=== PATIENT | female | born 1960 | race American Indian/Alaskan Native ===

== ENCOUNTER 2017-05-12 23:15 | Emergency (ER) | payer MEDICARE ==
[2017-05-13 00:53] LABS: Alanine Aminotransferase 12 units/L (7-56); Albumin/Globulin Ratio 1.5 %; Alkaline Phosphatase 101 units/L (35-129); Anion Gap 20 mmol/L; BUN/Creatinine Ratio 13; Blood Urea Nitrogen 10 mg/dL (7-17); Calcium 8.9 mg/dL (8.4-10.2); Carbon Dioxide 24 mmol/L (22-30); Chloride 100.3 mmol/L (98-107); Glucose 98 mg/dL (65-100); Lipase 16 units/L (13-60); Potassium 3.8 mmol/L (3.6-5.0); Sodium 140 mmol/L (137-145); Total Protein 6.7 g/dL (6.3-8.2)
[2017-05-13 01:00] LABS: Bilirubin,Urine NEG (Negative); Blood,Urine MOD (Negative); Ketones,Urine NEG (Negative); Leukocyte Esterase,Urine NEG (Negative); Nitrite,Urine NEG (Negative); Protein,Urine <15 mg/dL mg/dL (Negative); Urobilinogen,Urine < 2.0 mg/dL (<2.0)
[2017-05-13 01:45] LABS: Basophils % (Auto) 1.2 % (0.0-1.8); Eosinophils % (Auto) 1.5 % (0.0-4.3); Hematocrit 40.3 % (30.3-42.9); Hemoglobin 13.1 gm/dl (10.1-14.3); Mean Corpuscular HGB Conc 33 % (30-34); Mean Corpuscular Hemoglobin 29 pg (28-32); Mean Corpuscular Volume 90 fl (79-97); Platelet Count 240 K/mm3 (140-440); Red Blood Count 4.47 M/mm3 (3.65-5.03); Red Cell Distribution Width 13.1 % (13.2-15.2); White Blood Count 9.8 K/mm3 (4.5-11.0)
[2017-05-13] MEDS ORDERED: TYLENOL PO ONE (03:42)
[2017-05-13] MEDS ORDERED: TYLENOL ONE (03:45)
[2017-05-13] MEDS ORDERED: NACL 0.9% 1000 ML 1,000 ML IV ONE (11:36)
[2017-05-13] MEDS ORDERED: TORADOL IV ONE (11:36)
[2017-05-13] MEDS ORDERED: DILAUDID IV ONE (11:36)
--- NOTE | 2017-05-13 11:37 | Emergency Department Report ---
ED General Adult HPI - General Chief complaint: Abdominal Pain Stated complaint: FLANK PAIN Time Seen by Provider: 05/13/17 11:08 Source: patient, RN notes reviewed, old records reviewed Mode of arrival: Ambulatory Limitations: No Limitations - History of Present Illness Initial comments: This is a 57-year-old female. The patient is previously known to this provider. Patient has a past medical history of hypertension and high cholesterol. Her primary care doctor is Dr. Alicea. Surgical history includes total abdominal hysterectomy. The patient presents to the ER with a complaint of abdominal pain. The abdominal pain is in the right lower quadrant, and radiates to the right upper quadrant. The pain decreases when she is sitting up, and increases when she is walking. There is no headache, neck pain, chest pain, Patient also reports that the pain is worsened when she takes a deep breath. There is no leg pain. There is no leg swelling. Patient denies dysuria, but does endorse urinary urgency. She reports having had an outpatient CT scan last week, not certain of the results, and does not think that she received IV contrast. -: Gradual Location: abdomen Radiation: abdomen Severity scale (0 -10): 5 Quality: stabbing, aching Consistency: intermittent Improves with: rest Worsens with: movement Associated Symptoms: denies: confusion, chest pain, cough, loss of appetite, malaise, nausea/vomiting - Related Data Home Medications Medication Instructions Recorded Confirmed Last Taken Metoprolol [Lopressor] 25 mg PO BID 12/20/15 03/10/16 Unknown Simvastatin [Zocor TAB] 10 mg PO QHS 12/20/15 03/10/16 Unknown Previous Rx's Medication Instructions Recorded Last Taken Type Pantoprazole [Protonix] 40 mg PO QDAY #30 tablet 12/20/15 Unknown Rx Famotidine [Pepcid] 20 mg PO BID #60 tablet 03/11/16 Unknown Rx Ondansetron [Zofran ODT TAB] 8 mg PO Q8HR #20 tab.rapdis 03/11/16 Unknown Rx traMADol [Ultram] 50 mg PO Q6HR PRN #14 tablet 03/11/16 Unknown Rx Acetaminophen/Codeine [Tylenol 1 tab PO Q6H PRN #15 tab 05/13/17 Unknown Rx /Codeine # 3 tab] Ciprofloxacin HCl [Ciprofloxacin 500 mg PO Q12HR #10 tab 05/13/17 Unknown Rx TAB] Metoclopramide [Reglan] 10 mg PO QID PRN #30 tablet 05/13/17 Unknown Rx metroNIDAZOLE [Flagyl] 500 mg PO Q8HR #15 tablet 05/13/17 Unknown Rx Allergies Allergy/AdvReac Type Severity Reaction Status Date / Time No Known Allergies Allergy Verified 12/19/15 21:57 ED Review of Systems ROS: Stated complaint: FLANK PAIN Other details as noted in HPI Constitutional: denies: fever Eyes: denies: eye discharge ENT: denies: epistaxis Respiratory: see HPI. denies: cough, shortness of breath Cardiovascular: denies: chest pain Gastrointestinal: abdominal pain Genitourinary: as per HPI. denies: dysuria Musculoskeletal: as per HPI Skin: denies: lesions Neurological: denies: weakness ED Past Medical Hx - Past Medical History Previous Medical History?: Yes Hx Hypertension: Yes Hx GERD: Yes Hx Psychiatric Treatment: Yes (DEPRESSION/ANXIETY) Additional medical history: Urine Urgency - Surgical History Past Surgical History?: Yes Additional Surgical History: HYSTERECTOMY - Social History Smoking Status: Never Smoker Substance Use Type: None - Medications Home Medications: Home Medications Medication Instructions Recorded Confirmed Last Taken Type Metoprolol [Lopressor] 25 mg PO BID 12/20/15 03/10/16 Unknown History Pantoprazole [Protonix] 40 mg PO QDAY #30 tablet 12/20/15 03/10/16 Unknown Rx Simvastatin [Zocor TAB] 10 mg PO QHS 12/20/15 03/10/16 Unknown History Famotidine [Pepcid] 20 mg PO BID #60 tablet 03/11/16 Unknown Rx Ondansetron [Zofran ODT TAB] 8 mg PO Q8HR #20 tab.rapdis 03/11/16 Unknown Rx traMADol [Ultram] 50 mg PO Q6HR PRN #14 tablet 03/11/16 Unknown Rx Acetaminophen/Codeine [Tylenol 1 tab PO Q6H PRN #15 tab 05/13/17 Unknown Rx /Codeine # 3 tab] Ciprofloxacin HCl [Ciprofloxacin 500 mg PO Q12HR #10 tab 05/13/17 Unknown Rx TAB] Metoclopramide [Reglan] 10 mg PO QID PRN #30 tablet 05/13/17 Unknown Rx metroNIDAZOLE [Flagyl] 500 mg PO Q8HR #15 tablet 05/13/17 Unknown Rx ED Physical Exam - General Limitations: No Limitations General appearance: alert, in no apparent distress - Head Head exam: Present: atraumatic, normocephalic - Eye Eye exam: Present: normal appearance, EOMI. Absent: nystagmus - ENT ENT exam: Present: normal exam, normal orophraynx, mucous membranes moist, normal external ear exam - Neck Neck exam: Present: normal inspection, full ROM. Absent: tenderness, meningismus - Respiratory Respiratory exam: Present: normal lung sounds bilaterally. Absent: respiratory distress, wheezes, rales, rhonchi, stridor, chest wall tenderness - Cardiovascular Cardiovascular Exam: Present: regular rate, normal rhythm, normal heart sounds. Absent: systolic murmur, diastolic murmur, rubs, gallop - GI/Abdominal GI/Abdominal exam: Present: soft, tenderness, normal bowel sounds, other (there is right lower quadrant, right flank and right upper quadrant tenderness). Absent: distended, guarding, rebound, rigid - Extremities Exam Extremities exam: Present: normal inspection, full ROM, normal capillary refill. Absent: pedal edema, joint swelling, calf tenderness - Back Exam Back exam: Present: normal inspection, full ROM. Absent: tenderness, CVA tenderness (R), CVA tenderness (L), muscle spasm, paraspinal tenderness, vertebral tenderness - Neurological Exam Neurological exam: Present: alert, oriented X3, normal gait, other (Extraocular movements intact. Tongue midline. No facial droop. Facial sensation intact to light touch in the V1, V2, V3 distribution bilaterally. 5 and 5 strength in 4 extremities.. Sensation is intact to light touch in 4 extremities.). Absent : motor sensory deficit - Psychiatric Psychiatric exam: Present: normal affect, normal mood - Skin Skin exam: Present: warm, dry, intact, normal color. Absent: rash ED Course Vital Signs 05/12/17 05/13/17 05/13/17 23:18 04:30 15:04 Temperature 98.1 F 98.2 F Pulse Rate 77 65 Respiratory 18 18 20 Rate Blood Pressure 188/103 151/102 Blood Pressure [Right] O2 Sat by Pulse 99 100 Oximetry 05/13/17 05/13/17 15:05 15:47 Temperature Pulse Rate 68 Respiratory 20 18 Rate Blood Pressure Blood Pressure 150/96 [Right] O2 Sat by Pulse 100 Oximetry - Reevaluation(s) Reevaluation #1: 05/13/17 15:53 Differential diagnosis, including but not limited to: Pneumonia, pulmonary embolus, renal colic, appendicitis, cholecystitis Assessment and plan: 57-year-old female with right lower quadrant pain that radiates to the right upper quadrant. She is afebrile with reassuring vital signs with the exception of hypertension. No pulmonary embolus or DVT risk factors, low risk by well's criteria, d-dimer negative. Laboratory studies unremarkable, urinalysis unremarkable. Patient is pending CT scan of the abdomen and pelvis with IV contrast. Of note, the patient had a prolonged stay in the emergency department because she was a technically difficult IV stick, and ultimately required ultrasound-guided placement of an 18-gauge Angiocath in the right internal jugular system. She was treated aggressively for her pain, and as per nursing staff her pain is much improved. Reevaluation #2: 05/13/17 18:40 Abdomen is soft on repeat examination. CT scan demonstrates right-sided diverticulitis. The appendix is not discretely identified, but given 2 weeks of symptoms, have a very low suspicion for appendicitis. Patient will be started empirically on oral antibiotics, she will be given pain medication, nausea medication, and she will be instructed to follow-up with outpatient gastroenterology. Return precautions are reviewed. Patient will also be given a copy of her CAT scan report, as well as her laboratory studies. Reevaluation #3: 05/13/17 18:51 Patient reports a negative colonoscopy 2 years ago. She is eating food presently. She reports her symptoms are much improved. - Procedure Description Procedures done: Peripheral IV access could not be obtained by myself or nursing staff. The right neck was prepped and draped in the typical sterile fashion, patient was anesthetized with 10 mL of 1% lidocaine. With ultrasound guidance, a right-sided internal jugular 18-gauge Angiocath (3 inches), was inserted with 1 attempt and no difficulty. Full sterile precautions were observed. The patient tolerated the procedure well. After the procedure, there was no swelling or hematoma, and the IV line was easy to flush. ED Medical Decision Making - Lab Data Result diagrams: 05/13/17 00:10 05/13/17 00:10 Vital Signs 05/12/17 05/13/17 05/13/17 23:18 04:30 15:04 Temperature 98.1 F 98.2 F Pulse Rate 77 65 Respiratory 18 18 20 Rate Blood Pressure 188/103 151/102 Blood Pressure [Right] O2 Sat by Pulse 99 100 Oximetry 05/13/17 05/13/17 15:05 15:47 Temperature Pulse Rate 68 Respiratory 20 18 Rate Blood Pressure Blood Pressure 150/96 [Right] O2 Sat by Pulse 100 Oximetry Lab Results 05/13/17 05/13/17 05/13/17 Range/Units 00:10 00:10 00:20 WBC 9.8 (4.5-11.0) K/mm3 RBC 4.47 (3.65-5.03) M/mm3 Hgb 13.1 (10.1-14.3) gm/dl Hct 40.3 (30.3-42.9) % MCV 90 (79-97) fl MCH 29 (28-32) pg MCHC 33 (30-34) % RDW 13.1 L (13.2-15.2) % Plt Count 240 (140-440) K/mm3 Lymph % (Auto) 19.7 (13.4-35.0) % [place] % (Auto) 7.0 (0.0-7.3) % Eos % (Auto) 1.5 (0.0-4.3) % Baso % (Auto) 1.2 (0.0-1.8) % Lymph # 1.9 (1.2-5.4) K/mm3 [place] # 0.7 (0.0-0.8) K/mm3 Eos # 0.1 (0.0-0.4) K/mm3 Baso # 0.1 (0.0-0.1) K/mm3 Seg Neutrophils % 70.6 H (40.0-70.0) % Seg Neutrophils # 6.9 (1.8-7.7) K/mm3 PT (12.2-14.9) Sec. INR (0.87-1.13) APTT (24.2-36.6) Sec. D-Dimer (0-234) ng/mlDDU Sodium 140 (137-145) mmol/L Potassium 3.8 (3.6-5.0) mmol/L Chloride 100.3 (98-107) mmol/L Carbon Dioxide 24 (22-30) mmol/L Anion Gap 20 mmol/L BUN 10 (7-17) mg/dL Creatinine 0.8 (0.7-1.2) mg/dL Estimated GFR > 60 ml/min BUN/Creatinine Ratio 13 % Glucose 98 (65-100) mg/dL Calcium 8.9 (8.4-10.2) mg/dL Total Bilirubin 0.30 (0.1-1.2) mg/dL AST 16 (5-40) units/L ALT 12 (7-56) units/L Alkaline Phosphatase 101 (35-129) units/L Total Protein 6.7 (6.3-8.2) g/dL Albumin 4.0 (3.9-5) g/dL Albumin/Globulin Ratio 1.5 % Lipase 16 (13-60) units/L Urine Color Yellow (Yellow) Urine Turbidity Clear (Clear) Urine pH 6.0 (5.0-7.0) Ur Specific [place] 1.011 (1.003-1.030) Urine Protein <15 mg/dl (Negative) mg/dL Urine Glucose (UA) Neg (Negative) mg/dL Urine Ketones Neg (Negative) mg/dL Urine Blood Mod (Negative) Urine Nitrite Neg (Negative) Urine Bilirubin Neg (Negative) Urine Urobilinogen < 2.0 (<2.0) mg/dL Ur Leukocyte Esterase Neg (Negative) Urine WBC (Auto) 1.0 (0.0-6.0) /HPF Urine RBC (Auto) 2.0 (0.0-6.0) /HPF U Epithel Cells (Auto) 9.0 (0-13.0) /HPF 05/13/17 Range/Units Unknown WBC (4.5-11.0) K/mm3 RBC (3.65-5.03) M/mm3 Hgb (10.1-14.3) gm/dl Hct (30.3-42.9) % MCV (79-97) fl MCH (28-32) pg MCHC (30-34) % RDW (13.2-15.2) % Plt Count (140-440) K/mm3 Lymph % (Auto) (13.4-35.0) % [place] % (Auto) (0.0-7.3) % Eos % (Auto) (0.0-4.3) % Baso % (Auto) (0.0-1.8) % Lymph # (1.2-5.4) K/mm3 [place] # (0.0-0.8) K/mm3 Eos # (0.0-0.4) K/mm3 Baso # (0.0-0.1) K/mm3 Seg Neutrophils % (40.0-70.0) % Seg Neutrophils # (1.8-7.7) K/mm3 PT 13.8 (12.2-14.9) Sec. INR 1.01 (0.87-1.13) APTT 30.0 (24.2-36.6) Sec. D-Dimer 174.13 (0-234) ng/mlDDU Sodium (137-145) mmol/L Potassium (3.6-5.0) mmol/L Chloride (98-107) mmol/L Carbon Dioxide (22-30) mmol/L Anion Gap mmol/L BUN (7-17) mg/dL Creatinine (0.7-1.2) mg/dL Estimated GFR ml/min BUN/Creatinine Ratio % Glucose (65-100) mg/dL Calcium (8.4-10.2) mg/dL Total Bilirubin (0.1-1.2) mg/dL AST (5-40) units/L ALT (7-56) units/L Alkaline Phosphatase (35-129) units/L Total Protein (6.3-8.2) g/dL Albumin (3.9-5) g/dL Albumin/Globulin Ratio % Lipase (13-60) units/L Urine Color (Yellow) Urine Turbidity (Clear) Urine pH (5.0-7.0) Ur Specific [place] (1.003-1.030) Urine Protein (Negative) mg/dL Urine Glucose (UA) (Negative) mg/dL Urine Ketones (Negative) mg/dL Urine Blood (Negative) Urine Nitrite (Negative) Urine Bilirubin (Negative) Urine Urobilinogen (<2.0) mg/dL Ur Leukocyte Esterase (Negative) Urine WBC (Auto) (0.0-6.0) /HPF Urine RBC (Auto) (0.0-6.0) /HPF U Epithel Cells (Auto) (0-13.0) /HPF - Radiology Data Radiology results: pending, report reviewed, image reviewed X-ray the chest is negative for acute disease CT scan of the abdomen and pelvis: Critical care attestation.: If time is entered above; I have spent that time in minutes in the direct care of this critically ill patient, excluding procedure time. ED Disposition Clinical Impression: Abdominal pain Disposition: DC-01 TO HOME OR SELFCARE Is pt being admited?: No Does the pt Need Aspirin: No Condition: Stable Instructions: Abdominal Pain (ED) Additional Instructions: Follow-up with your primary care doctor within the next 7-10 days. Blood pressure was elevated, and this needs to be followed up. Long-term complications of hypertension and elevated blood pressure includes stroke, heart attack, disability, , paralysis, loss of quality of life. CT scan suggested diverticulitis/inflammation of the ascending/right-sided colon. Follow up with a hearing officer within the next month. Dr. Cooley is a local gastroenterology specialist. Take the antibiotics, pain medication, nausea medication as directed and needed. While taking the antibiotics, does not consume alcohol. Avoid alcohol consumption for the next 2 weeks. Return to the ER right away with new pain, worsened pain, migration of pain, fevers, chills, lethargy, irritability, projectile vomiting, change in mental status, inability to tolerate liquid feeds. Dr. Vito Washburn is a local primary care doctor. It is very important to follow-up with gastroenterology as directed. Not following up with gastroenterology as directed may result in an undiagnosed cancer, tumor, malignancy. Therefore, makes her to follow up as recommended. Prescriptions: Acetaminophen/Codeine [Tylenol /Codeine # 3 tab] 1 tab PO Q6H PRN #15 tab PRN Reason: Pain Ciprofloxacin HCl [Ciprofloxacin TAB] 500 mg PO Q12HR #10 tab Metoclopramide [Reglan] 10 mg PO QID PRN #30 tablet PRN Reason: Nausea metroNIDAZOLE [Flagyl] 500 mg PO Q8HR #15 tablet Referrals: PRIMARY CARE, [Primary Care Provider] - 3-5 Days SHIRA LEON MD [Staff Physician] - 3-5 Days VITO WASHBURN MD [Staff Physician] - 3-5 Days
--- NOTE | 2017-05-13 12:43 | XRay Report ---
ROUTINE CHEST, TWO VIEWS: HISTORY: Cough, pleuritic chest pain. The trachea, heart, mediastinal contour, lung carter and bony thorax are unremarkable. IMPRESSION: Unremarkable chest x-ray.
[2017-05-13] MEDS ORDERED: XYLOCAINE 2%/EPI 1:100,000 INFILTRATI ONE (13:59)
[2017-05-13] MEDS ORDERED: XYLOCAINE 1% 20 mL ONE (14:22)
[2017-05-13 15:28] LABS: INR 1.01 (0.87-1.13)
[2017-05-13 15:48] VITALS: BP 150/96
[2017-05-13] MEDS ORDERED: NACL ONE (16:38)
--- NOTE | 2017-05-13 18:38 | Cat Scan Report ---
FINAL REPORT PROCEDURE: CT ABDOMEN PELVIS W CON TECHNIQUE: Computerized axial tomography of the abdomen and pelvis was performed after the IV injection of iodinated nonionic contrast. HISTORY: Abdominal pain COMPARISON: 03/11/2016 FINDINGS: Visualized lower thorax: There is mild patchy atelectasis at the left lung base. Liver: Normal size and attenuation. Spleen: Normal size and attenuation. Gallbladder and biliary system: Normal. Pancreas: Normal. Adrenals: Normal. Kidneys: Normal. GI tract: There is diffuse colonic diverticulosis. There are mild inflammatory changes along the right lateral colonic wall, which may be related to mild diverticulitis. No extraluminal air or abscess is seen. The appendix is not visualized. There is no bowel obstruction. Lymph nodes and mesentery: There are bilateral numerous clips in the pelvis, possibly related to prior lymph node dissection. Vasculature: Normal. Bladder: Normal. Reproductive organs: Uterus is not visualized. Peritoneum: No free fluid. Musculoskeletal structures: There are degenerative disc changes at L3-4, with disc herniation and vacuum phenomenon. Other: None. IMPRESSION: Findings consistent with mild right colonic inflammation, likely related to diverticulitis. Follow-up imaging after treatment could be obtained to exclude any underlying colonic lesions.
[2017-05-13] MEDS ORDERED: FLAGYL PO ONE (18:41)
[2017-05-13] MEDS ORDERED: LEVAQUIN PO ONE (18:41)
== END 2017-05-13 19:08 | disposition home or self-care (01) ==
LOC: ED 23:15
DX: R10.32 Left lower quadrant pain (principal); I10 Essential (primary) hypertension; K21.9 Gastro-esophageal reflux disease without esophagitis
CPT/HCPCS: 36415; 36569; 71020; 74177; 80053; 81001; 83690; 85025; 85379; 85610; 85730; 96361; 96374; 96375; 99284; J1170; J1885; J7030; Q9967

== ENCOUNTER 2017-09-14 10:08 | Outpatient (CLI) | payer MEDICARE ==
--- NOTE | 2017-09-15 10:05 | Mammography Report ---
BILATERAL DIGITAL SCREENING MAMMOGRAM with CAD: 09/14/17 10:08:00 CLINICAL: Routine screening. COMPARISON:09/09/16 FINDINGS: The breasts are almost entirely fatty. No mass, architectural distortion or suspicious calcifications. IMPRESSION: No mammographic evidence of malignancy. BI-RADS CATEGORY: 1 - - Negative RECOMMENDATION: Routine mammographic screening in one year. COMMENT: Patient follow-up letters are generated by our [employer] application.
== END 2017-09-14 10:09 | disposition home or self-care (01) ==
LOC: MAMMO 10:08
PROVIDERS: ATTEND Internal Medicine
DX: Z12.31 Encounter for screening mammogram for malignant neoplasm of breast (principal)
CPT/HCPCS: 77067

== ENCOUNTER 2018-09-13 00:23 | Emergency (ER) | payer MEDICARE ==
[2018-09-13] MEDS ORDERED: NACL 0.9% 1000 ML 1,000 ML IV ONE (00:45)
[2018-09-13 01:14] LABS: Basophils # (Auto) 0.1 K/mm3 (0.0-0.1); Basophils % (Auto) 1.2 % (0.0-1.8); Eosinophils # (Auto) 0.1 K/mm3 (0.0-0.4); Eosinophils % (Auto) 1.4 % (0.0-4.3); Hemoglobin 12.9 gm/dl (10.1-14.3); Lymphocytes # (Auto) 2.2 K/mm3 (1.2-5.4); Lymphocytes % (Auto) 42.7 % (13.4-35.0); Mean Corpuscular HGB Conc 33 % (30-34); Mean Corpuscular Volume 91 fl (79-97); Monocytes # (Auto) 0.7 K/mm3 (0.0-0.8); Monocytes % (Auto) 13.1 % (0.0-7.3); Platelet Count 220 K/mm3 (140-440)
[2018-09-13] MEDS ORDERED: ZOFRAN IV ONE (01:19)
[2018-09-13] MEDS ORDERED: ATIVAN PO ONE (01:20)
[2018-09-13 01:28] LABS: Alanine Aminotransferase 24 units/L (7-56); Albumin 4.5 g/dL (3.9-5); BUN/Creatinine Ratio 10; Blood Urea Nitrogen 8 mg/dL (7-17); Calcium 8.7 mg/dL (8.4-10.2); Hemolysis Index 34
[2018-09-13 01:47] LABS: Bacteria,Urine 1+ /HPF (Negative); Bilirubin,Urine NEG (Negative); Blood,Urine MOD (Negative); Color,Urine Yellow (Yellow); Protein,Urine <15 mg/dL mg/dL (Negative); Urobilinogen,Urine < 2.0 mg/dL (<2.0)
--- NOTE | 2018-09-13 03:56 | Cat Scan Report ---
PROCEDURE: CT ABDOMEN PELVIS W CON TECHNIQUE: Computerized axial tomography of the abdomen and pelvis was performed after the IV inject ion of iodinated nonionic contrast. CT DOSE LENGTH PRODUCT: mGycm HISTORY: severe abdominal pain COMPARISONS: None . FINDINGS: Visualized lower thorax: No significant abnormality. Liver: Normal size and attenuation. Spleen: Normal size and attenuation. Gallbladder and biliary system: Normal. Pancreas: Normal. Adrenals: Normal. Kidneys: Normal. GI tract: There are diverticula of the colon. There is no diverticulitis or colitis, obstruction or mass. Extension and appendectomy. . Lymph nodes and mesentery: Normal. Vasculature: Normal.. Bladder: Normal. Reproductive organs: There has been a hysterectomy.. Peritoneum: There is no ascites or free air, abscess or adenopathy.. Musculoskeletal structures: No significant abnormality. IMPRESSION: There are diverticula of the colon. There is no diverticulitis or colitis, obstruction or mass. Extension and appendectomy. There has been a hysterectomy. There is no ascites or free air, abscess or adenopathy. This document is electronically signed by Sha Chairez MD., September 13 2018 03:54:28 AM ET
[2018-09-13 04:09] VITALS: BP 126/80
--- NOTE | 2018-09-13 05:00 | Emergency Department Report ---
HPI - General Chief Complaint: Nausea/Vomiting/Diarrhea Time Seen by Provider: 09/13/18 00:55 - HPI HPI: This is a 58-year-old female who presents to the ED with N/V, bilateral upper quadrant abdominal cramping rated 8/10 and pressure headache "on top" 6/10 since yesterday morning. Patient states she has been drinking liquor on and off since the age of 16 and EMS reports patient went on a binge for the past few days. ED Past Medical Hx - Past Medical History Previous Medical History?: Yes Hx Hypertension: Yes Hx Diabetes: No Hx GERD: Yes Hx Arthritis: No Hx Seizures: No Hx Psychiatric Treatment: Yes (DEPRESSION/ANXIETY) Hx HIV: No Additional medical history: Urine Urgency - Surgical History Past Surgical History?: Yes Additional Surgical History: HYSTERECTOMY - Social History Smoking Status: Never Smoker Substance Use Type: Alcohol - Medications Home Medications: Home Medications Medication Instructions Recorded Confirmed Last Taken Type Metoprolol [Lopressor TAB] 25 mg PO BID 12/20/15 12/30/17 Unknown History Simvastatin [Zocor TAB] 10 mg PO QHS 12/20/15 12/30/17 Unknown History Pantoprazole [Protonix TAB] 40 mg PO QDAY #30 tablet 09/13/18 Unknown Rx ED Review of Systems ROS: Stated complaint: N/V ABD PAIN Other details as noted in HPI Comment: All other systems reviewed and negative Constitutional: denies: see HPI ENT: denies: throat pain Cardiovascular: denies: chest pain, palpitations Gastrointestinal: abdominal pain, nausea, vomiting Physical Exam - Physical Exam Vital Signs: Vital Signs 09/13/18 09/13/18 09/13/18 00:37 00:46 00:48 Temperature 98.1 F Pulse Rate 127 H 116 H Respiratory 18 26 H 18 Rate Blood Pressure 125/89 125/89 O2 Sat by Pulse 100 99 100 Oximetry 09/13/18 09/13/18 09/13/18 01:00 01:16 01:30 Temperature Pulse Rate 112 H 118 H 115 H Respiratory 15 20 14 Rate Blood Pressure 116/85 116/85 119/81 O2 Sat by Pulse 97 97 95 Oximetry 09/13/18 09/13/18 09/13/18 01:46 02:00 03:00 Temperature Pulse Rate 114 H 114 H 103 H Respiratory 21 21 16 Rate Blood Pressure 125/89 118/71 106/70 O2 Sat by Pulse 96 95 Oximetry 09/13/18 04:00 Temperature Pulse Rate 98 H Respiratory 15 Rate Blood Pressure 126/80 O2 Sat by Pulse 95 Oximetry Physical Exam: Physical Exam: - General Limitations: No Limitations General appearance: alert, in no apparent distress. - Head Head exam: Present: atraumatic, normocephalic - Eye Eye exam: Present: normal appearance - ENT ENT exam: Present: mucous membranes moist - Neck Neck exam: Present: normal inspection - Respiratory Respiratory exam: Present: normal lung sounds bilaterally. Absent: respiratory distress - Cardiovascular Cardiovascular Exam: Present: normal rhythm. Absent: systolic murmur, diastolic murmur, rubs, gallop - GI/Abdominal GI/Abdominal exam: Present: soft, normal bowel sounds - Extremities Exam Extremities exam: Present: normal inspection - Back Exam Back exam: Present: normal inspection - Neurological Exam Neurological exam: Present: alert, oriented X3 - Psychiatric Psychiatric exam: normal affect and mood - Skin Skin exam: Present: warm, dry, intact, normal color. Absent: rash ED Course Vital Signs 09/13/18 09/13/18 09/13/18 00:37 00:46 00:48 Temperature 98.1 F Pulse Rate 127 H 116 H Respiratory 18 26 H 18 Rate Blood Pressure 125/89 125/89 O2 Sat by Pulse 100 99 100 Oximetry 09/13/18 09/13/18 09/13/18 01:00 01:16 01:30 Temperature Pulse Rate 112 H 118 H 115 H Respiratory 15 20 14 Rate Blood Pressure 116/85 116/85 119/81 O2 Sat by Pulse 97 97 95 Oximetry 09/13/18 09/13/18 09/13/18 01:46 02:00 03:00 Temperature Pulse Rate 114 H 114 H 103 H Respiratory 21 21 16 Rate Blood Pressure 125/89 118/71 106/70 O2 Sat by Pulse 96 95 Oximetry 09/13/18 04:00 Temperature Pulse Rate 98 H Respiratory 15 Rate Blood Pressure 126/80 O2 Sat by Pulse 95 Oximetry ED Medical Decision Making - Lab Data Result diagrams: 09/13/18 00:55 09/13/18 00:55 Critical care attestation.: If time is entered above; I have spent that time in minutes in the direct care of this critically ill patient, excluding procedure time. ED Disposition Clinical Impression: Abdominal pain Qualifiers: Abdominal location: generalized Qualified Code(s): R10.84 - Generalized abdominal pain GERD (gastroesophageal reflux disease) Qualifiers: Esophagitis presence: with esophagitis Qualified Code(s): K21.0 - Gastro-e sophageal reflux disease with esophagitis Disposition: TO HOME OR SELFCARE Is pt being admited?: No Does the pt Need Aspirin: No Condition: Stable Instructions: Gastritis (ED) Prescriptions: Pantoprazole [Protonix TAB] 40 mg PO QDAY #30 tablet Referrals: PRIMARY CARE, [Primary Care Provider] - 3-5 Days
== END 2018-09-13 06:50 | disposition home or self-care (01) ==
LOC: ED 00:23
DX: R11.2 Nausea with vomiting, unspecified (principal); R19.7 Diarrhea, unspecified; I10 Essential (primary) hypertension; K21.9 Gastro-esophageal reflux disease without esophagitis; F32.9 Major depressive disorder, single episode, unspecified; F41.9 Anxiety disorder, unspecified; Z90.710 Acquired absence of both cervix and uterus; Z79.899 Other long term (current) drug therapy
CPT/HCPCS: 36415; 74177; 80053; 81001; 82150; 83690; 85025; 93005; 93010; 96361; 96374; 99284; G0480; J2405; J7030; Q9967; 80320

== ENCOUNTER 2018-10-11 09:39 | Outpatient (CLI) | payer MEDICARE ==
--- NOTE | 2018-10-11 10:22 | Mammography Report ---
BILATERAL MAMMOGRAM: FINDINGS: There are scattered fibroglandular densities (approximately 25%-50% glandular). No mass, distortion, suspicious calcification, or skin change is seen. There no interval changes when compared to exams dating back to 2017. CAD was utilized. IMPRESSION: Negative mammogram. There is no mammographic evidence of malignancy. RECOMMENDATION: Follow-up per ACS guidelines. BI-RADS CATEGORY: 1 = Negative ACR BI-RADS MAMMOGRAPHIC CODES: 0 = Needs additional imaging evaluation; 1 = Negative; 2 = Benign; 3 = Probably benign; 4 = Suspicious; 5 = Malignant; 6 = Known biopsy-proven malignancy COMMENT: 1. Dense breast tissue, i.e., adenosis, fibrocystic changes, etc., may obscure an underlying neoplasm. 2. Approximately 10% of cancers are not detected with mammography. 3. A negative mammography report should not delay biopsy if a clinically suspicious mass is present. COMMENT: Patient follow-up letters are generated in [employer].
== END 2018-10-11 09:40 | disposition home or self-care (01) ==
LOC: MAMMO 09:39
PROVIDERS: ATTEND Internal Medicine
DX: Z12.31 Encounter for screening mammogram for malignant neoplasm of breast (principal); I10 Essential (primary) hypertension; K21.9 Gastro-esophageal reflux disease without esophagitis; Z90.710 Acquired absence of both cervix and uterus; Z87.891 Personal history of nicotine dependence
CPT/HCPCS: 77067

== ENCOUNTER 2020-11-27 12:28 | Emergency (ER) | payer MEDICARE ==
[2020-11-27 13:57] VITALS: BP 119/61
--- NOTE | 2020-11-27 14:16 | Event Note ---
ED Screening Note Date of service: 11/27/20 Time: 14:14 ED Screening Note: 60 y o presents with lft foot pain and swelling s/p injury This initial assessment/diagnostic orders/clinical plan/treatment(s) is/are subject to change based on patients health status, clinical progression and re-assessment by fellow clinical providers in the ED. Further treatment and workup at subsequent clinical providers discretion. Patient/guardian urged not to elope from the ED as their condition may be serious if not clinically assessed and managed. Initial orders include: xr
--- NOTE | 2020-11-27 14:53 | XRay Report ---
HISTORY:foot pain/ swelling COMPARISON: None. TECHNIQUE: AP lateral and obliques views were obtained FINDINGS: Bones: Fractures of the second and third distal metatarsals are noted. Joint spaces: Maintained. Soft tissues: No significant abnormality. Additional findings: None. IMPRESSION: 1. Fracture second and third metatarsals Signer Name: Simba Andujar MD Signed: 11/27/2020 2:49 PM Workstation Name: [id number]
[2020-11-27] MEDS ORDERED: HYDROcodone/ACETAMINOPHEN 5-325 MG TAB PO ONE (16:51)
--- NOTE | 2020-11-27 18:58 | Emergency Department Report ---
ED Lower Extremity HPI - General Chief Complaint: Extremity Injury, Lower Stated Complaint: FOOT PAIN Time Seen by Provider: 11/27/20 16:53 Source: patient Mode of arrival: Ambulatory Limitations: No Limitations - History of Present Illness Initial Comments: This is a 60-year-old female presented to ED complaining of left foot swelling and pain status post stepping in a hole and twisting her foot. Patient states that this injury happened last week. Patient states that she was at home trying to heal the foot but has gotten swollen and more painful since then. Patient states pain with applied applied pressure. Patient denies any cuts or laceration to the foot. MD Complaint: foot injury -: week(s) (1) Injury: Foot: Left Type of Injury: blunt Place: street/outdoors Severity: moderate Severity scale (0 -10): 9 Improves With: nothing, immobilization Worsens With: weight bearing, movement Context: walking Associated Symptoms: swelling, unable to bear weight - Related Data Home Medications Medication Instructions Recorded Confirmed Last Taken Simvastatin (Nf) [Zocor TAB] 10 mg PO QHS 12/20/15 04/26/20 04/16/20 Budesonide/Formoterol Fumarate 1 puff PO BID PRN 04/26/20 04/26/20 04/12/20 [Symbicort 80-4.5 Mcg Inhaler] Losartan [Cozaar] 50 mg PO QDAY 04/26/20 04/26/20 04/16/20 Sertraline [Zoloft] 25 mg PO QDAY 04/26/20 04/26/20 04/16/20 atenoloL [Tenormin] 25 mg PO DAILY 04/26/20 04/26/20 04/16/20 Previous Rx's Medication Instructions Recorded Last Taken Type Pantoprazole [Protonix TAB] 40 mg PO QDAY #30 tablet 09/13/18 04/23/20 Rx Cyclobenzaprine [Flexeril] 10 mg PO QHS PRN #20 tablet 11/27/20 Unknown Rx HYDROcodone/APAP 5-325 [[place] 1 each PO Q6HR PRN #12 tablet 11/27/20 Unknown Rx 5/325] Ibuprofen [Motrin 800 MG tab] 800 mg PO Q8HR PRN #30 tablet 11/27/20 Unknown Rx Allergies Allergy/AdvReac Type Severity Reaction Status Date / Time No Known Allergies Allergy Verified 12/19/15 21:57 ED Review of Systems ROS: Stated complaint: FOOT PAIN Other details as noted in HPI Comment: All other systems reviewed and negative ED Past Medical Hx - Past Medical History Previous Medical History?: Yes Hx Hypertension: Yes Hx Diabetes: No Hx GERD: Yes Hx Arthritis: No Hx Seizures: No Hx Psychiatric Treatment: Yes (DEPRESSION/ANXIETY) Hx HIV: No Additional medical history: Urine Urgency - Surgical History Additional Surgical History: HYSTERECTOMY - Social History Smoking Status: Never Smoker Substance Use Type: Alcohol - Medications Home Medications: Home Medications Medication Instructions Recorded Confirmed Last Taken Type Simvastatin (Nf) [Zocor TAB] 10 mg PO QHS 12/20/15 04/26/20 04/16/20 History Pantoprazole [Protonix TAB] 40 mg PO QDAY #30 tablet 09/13/18 04/26/20 04/23/20 Rx Budesonide/Formoterol Fumarate 1 puff PO BID PRN 04/26/20 04/26/20 04/12/20 History [Symbicort 80-4.5 Mcg Inhaler] Losartan [Cozaar] 50 mg PO QDAY 04/26/20 04/26/20 04/16/20 History Sertraline [Zoloft] 25 mg PO QDAY 04/26/20 04/26/20 04/16/20 History atenoloL [Tenormin] 25 mg PO DAILY 04/26/20 04/26/20 04/16/20 History Cyclobenzaprine [Flexeril] 10 mg PO QHS PRN #20 tablet 11/27/20 Unknown Rx HYDROcodone/APAP 5-325 [[place] 1 each PO Q6HR PRN #12 tablet 11/27/20 Unknown Rx 5/325] Ibuprofen [Motrin 800 MG tab] 800 mg PO Q8HR PRN #30 tablet 11/27/20 Unknown Rx ED Physical Exam - General Limitations: No Limitations General appearance: alert, in no apparent distress - Head Head exam: Present: atraumatic, normocephalic - Eye Eye exam: Present: normal appearance - ENT ENT exam: Present: mucous membranes moist - Neck Neck exam: Present: normal inspection, full ROM - Respiratory Respiratory exam: Present: normal lung sounds bilaterally. Absent: respiratory distress - Cardiovascular Cardiovascular Exam: Present: regular rate, normal rhythm. Absent: systolic murmur, diastolic murmur, rubs, gallop - GI/Abdominal GI/Abdominal exam: Present: soft, normal bowel sounds - Extremities Exam Extremities exam: Present: normal inspection, tenderness (To palpation of the anterior aspect of the foot. Minimal swelling noted.), pedal edema, joint swelling. Absent: calf tenderness - Back Exam Back exam: Present: normal inspection, full ROM. Absent: tenderness, CVA tenderness (R), CVA tenderness (L) - Neurological Exam Neurological exam: Present: alert, oriented X3 - Psychiatric Psychiatric exam: Present: normal affect, normal mood - Skin Skin exam: Present: warm, dry, intact, normal color. Absent: rash ED Course Vital Signs 11/27/20 13:55 Temperature 97.9 F Pulse Rate 88 Respiratory 18 Rate Blood Pressure 119/61 [Right] O2 Sat by Pulse 98 Oximetry ED Lower Extremity MDM - Radiology Data Radiology results: report reviewed, image reviewed ISTORY:foot pain/ swelling COMPARISON: None. TECHNIQUE: AP lateral and obliques views were obtained FINDINGS: Bones: Fractures of the second and third distal metatarsals are noted. Joint spaces: Maintained. Soft tissues: No significant abnormality. Additional findings: None. IMPRESSION: 1. Fracture second and third metatarsals Signer Name: Simba Andujar MD Signed: 11/27/2020 2:49 PM Workstation Name: [id number] Transcribed By: NATALIE Dictated By: Simba Andujar MD Electronically Authenticated By: Simba Andujar MD Signed Date/Time: 11/27/20 1449 - Medical Decision Making 60-year-old male presents with fracture of the second and third metatarsal of the left foot ED course: Pt received 60 mg of Carlisle tab in the emergency department Foot x-ray ordered. Foot x-ray shows: Fracture, see report above Discussed findings with patient. Discussed application of posterior splint to be placed. Post-splint evaluation: Capillary refill 2 seconds, patient able to wiggle fingers, neurovascularly intact no loss of sensation. Discussed the patient and orthopedic follow-up in 2-3 days. Referrals given. From follow-up from care physician. Vital signs are normal patient is in no acute or respiratory distress. Patient states understanding all discussed complaint of follow-up. Critical care attestation.: If time is entered above; I have spent that time in minutes in the direct care of this critically ill patient, excluding procedure time. ED Disposition Clinical Impression: Metatarsal fracture Disposition: TO HOME OR SELFCARE Is pt being admited?: No Does the pt Need Aspirin: No Condition: Stable Instructions: Cast or Splint Care, Adult, [id number], Metatarsal Fracture Additional Instructions: Make sure to follow up with the primary care physician as discussed. Take all your medications as you've been prescribed. If you have any worsening symptoms or develop new symptoms please return to ED immediately. Referrals: PRIMARY CAREMD [Primary Care Provider] - 3-5 Days HAIDER BARAJAS MD [Staff Physician] - 3-5 Days Forms: Work/School Release Form Time of Disposition: 19:00
== END 2020-11-27 19:50 | disposition home or self-care (01) ==
LOC: ED 12:28
DX: S92.332A Displaced fracture of third metatarsal bone, left foot, initial encounter for closed fracture (principal); I10 Essential (primary) hypertension; K21.9 Gastro-esophageal reflux disease without esophagitis; F32.9 Major depressive disorder, single episode, unspecified; F41.9 Anxiety disorder, unspecified; Z90.710 Acquired absence of both cervix and uterus; Z79.899 Other long term (current) drug therapy; X50.1XXA Overexertion from prolonged static or awkward postures, initial encounter; Y93.89 Activity, other specified; Y92.89 Other specified places as the place of occurrence of the external cause; Y99.8 Other external cause status

== ENCOUNTER 2021-02-28 10:12 | Outpatient (CLI) | payer MEDICARE ==
--- NOTE | 2021-02-28 14:33 | Mammography Report ---
DIGITAL SCREENING MAMMOGRAM WITH CAD, 02/28/2021 CLINICAL INFORMATION / INDICATION: Routine screening mammography. SCRN MAMMO TECHNIQUE: Digital bilateral 2D mammography was obtained in the craniocaudal and mediolateral obliqu e projections. This examination was interpreted with the benefit of Computer-Aided Detection analysis . COMPARISON: 02/09/2020 FINDINGS: Breast Density: The breasts are almost entirely fatty. No dominant mass, suspicious calcifications, or architectural distortion in either breast. IMPRESSION: No mammographic evidence of malignancy. Follow up recommendation: Routine yearly BI-RADS Category 1: Negative. A "normal" or negative report should not discourage follow up or biopsy of a clinically significant f inding. A written summary of these findings will be mailed to the patient. The patient will be entered into a mammography reporting system which will generate a reminder letter for the patient's next appointmen t at the appropriate interval. The [employer] recommends yearly mammograms starting at age 40 and continuing as l carmen as a woman is in good health. Breast MRI is recommended for women with an approximate 20-25% or greater lifetime risk of breast cancer, including women with a strong family history of breast or ova bisi cancer or who have been treated for Hodgkin's disease. Signer Name: Douglas Stevenson MD Signed: 02/28/2021 2:29 PM Workstation Name: [email or web address]
== END 2021-02-28 10:13 | disposition home or self-care (01) ==
LOC: MAMMO 10:12
PROVIDERS: ATTEND Internal Medicine
DX: Z12.31 Encounter for screening mammogram for malignant neoplasm of breast (principal)
CPT/HCPCS: 77067

== ENCOUNTER 2021-07-03 15:33 | Emergency (ER) | payer MEDICARE ==
--- NOTE | 2021-07-03 16:11 | Emergency Department Report ---
<LAURA GORMAN - Last Filed: 07/03/21 19:21> - General Chief Complaint: Upper Respiratory Infection Stated Complaint: FEELING SICK Time Seen by Provider: 07/03/21 15:46 Source: patient Mode of arrival: Ambulatory Limitations: No Limitations - History of Present Illness Initial Comments: This is a pleasant 61-year-old female presents the emergency department chief complaint of 2 days of body aches, cough, congestion, chills, headache. She reports her granddaughter who has she has been in direct contact with recently tested positive for COVID-19. Patient is fully vaccinated for COVID-19. She has past medical history of hypertension, hyperlipidemia, GERD, DVT in her left leg and current medications include telmisartan, atenolol, atorvastatin, sertraline, Nexium and Xarelto which she has been out of for the last few months. She denies any allergies to medications that she is aware of. She denies any chest pain or shortness of breath. - Related Data Home Medications Medication Instructions Recorded Confirmed Last Taken Simvastatin (Nf) [Zocor TAB] 10 mg PO QHS 12/20/15 04/26/20 04/16/20 Budesonide/Formoterol Fumarate 1 puff PO BID PRN 04/26/20 04/26/20 04/12/20 [Symbicort 80-4.5 Mcg Inhaler] Losartan [Cozaar] 50 mg PO QDAY 04/26/20 04/26/20 04/16/20 Sertraline [Zoloft] 25 mg PO QDAY 04/26/20 04/26/20 04/16/20 atenoloL [Tenormin] 25 mg PO DAILY 04/26/20 04/26/20 04/16/20 Previous Rx's Medication Instructions Recorded Last Taken Type Pantoprazole [Protonix TAB] 40 mg PO QDAY #30 tablet 09/13/18 04/23/20 Rx Cyclobenzaprine [Flexeril] 10 mg PO QHS PRN #20 tablet 11/27/20 Unknown Rx HYDROcodone/APAP 5-325 [[place] 1 each PO Q6HR PRN #12 tablet 11/27/20 Unknown Rx 5/325] Ibuprofen [Motrin 800 MG tab] 800 mg PO Q8HR PRN #30 tablet 11/27/20 Unknown Rx Allergies Allergy/AdvReac Type Severity Reaction Status Date / Time No Known Allergies Allergy Verified 12/19/15 21:57 ED Review of Systems Comment: All other systems reviewed and negative Constitutional: chills, fever, malaise Eyes: denies: eye pain, eye discharge, vision change ENT: congestion. denies: ear pain, throat pain Respiratory: denies: cough, shortness of breath, wheezing Cardiovascular: denies: chest pain, palpitations Endocrine: no symptoms reported Gastrointestinal: denies: abdominal pain, nausea, diarrhea Genitourinary: denies: urgency, dysuria, discharge Musculoskeletal: myalgia. denies: back pain, joint swelling, arthralgia Skin: denies: rash, lesions Neurological: headache. denies: weakness, paresthesias Psychiatric: denies: anxiety, depression Hematological/Lymphatic: denies: easy bleeding, easy bruising ED Past Medical Hx - Past Medical History Hx Hypertension: Yes Hx Diabetes: No Hx GERD: Yes Hx Arthritis: No Hx Seizures: No Hx Psychiatric Treatment: Yes (DEPRESSION/ANXIETY) Hx HIV: No Additional medical history: Urine Urgency - Surgical History Additional Surgical History: HYSTERECTOMY - Social History Smoking Status: Never Smoker Substance Use Type: Alcohol - Medications Home Medications: Home Medications Medication Instructions Recorded Confirmed Last Taken Type Simvastatin (Nf) [Zocor TAB] 10 mg PO QHS 12/20/15 04/26/20 04/16/20 History Pantoprazole [Protonix TAB] 40 mg PO QDAY #30 tablet 09/13/18 04/26/20 04/23/20 Rx Budesonide/Formoterol Fumarate 1 puff PO BID PRN 04/26/20 04/26/20 04/12/20 History [Symbicort 80-4.5 Mcg Inhaler] Losartan [Cozaar] 50 mg PO QDAY 04/26/20 04/26/20 04/16/20 History Sertraline [Zoloft] 25 mg PO QDAY 04/26/20 04/26/20 04/16/20 History atenoloL [Tenormin] 25 mg PO DAILY 04/26/20 04/26/20 04/16/20 History Cyclobenzaprine [Flexeril] 10 mg PO QHS PRN #20 tablet 11/27/20 Unknown Rx HYDROcodone/APAP 5-325 [[place] 1 each PO Q6HR PRN #12 tablet 11/27/20 Unknown Rx 5/325] Ibuprofen [Motrin 800 MG tab] 800 mg PO Q8HR PRN #30 tablet 11/27/20 Unknown Rx ED Physical Exam - General Limitations: No Limitations General appearance: alert, in no apparent distress - Head Head exam: Present: atraumatic, normocephalic - Eye Eye exam: Present: normal appearance, PERRL, EOMI Pupils: Present: normal accommodation - ENT ENT exam: Present: normal exam, normal orophraynx, mucous membranes moist - Neck Neck exam: Present: normal inspection, full ROM. Absent: tenderness, meningismus - Respiratory Respiratory exam: Present: normal lung sounds bilaterally. Absent: respiratory distress, wheezes, rales, rhonchi, stridor - Cardiovascular Cardiovascular Exam: Present: regular rate, normal rhythm, normal heart sounds. Absent: systolic murmur, diastolic murmur, rubs, gallop - GI/Abdominal GI/Abdominal exam: Present: soft, normal bowel sounds. Absent: distended, tenderness, guarding, rebound, rigid - Extremities Exam Extremities exam: Present: normal inspection, full ROM, tenderness, calf tenderness (There is tenderness and edema to the left lower leg when compared to the right.) - Back Exam Back exam: Present: normal inspection, full ROM. Absent: tenderness, CVA tenderness (R), CVA tenderness (L), paraspinal tenderness, vertebral tenderness - Neurological Exam Neurological exam: Present: alert, oriented X3, normal gait - Psychiatric Psychiatric exam: Present: normal affect, normal mood - Skin Skin exam: Present: warm, dry, intact, normal color. Absent: rash ED Course - Reevaluation(s) Reevaluation #1: 07/03/21 16:10 Patient's vitals are stable and she is in no acute distress. On my examination and noticed the patient's left leg was more swollen than the right. When questioned about this she did endorse she had a history of DVT and is supposed to be on Xarelto but is been out of it for the last few months. Due to her high risk of PE and respiratory symptoms currently I will order a CT pulmonary em bolism study to rule out PE. If negative I will restart the patient Xarelto and treat her supportively for what I suspect is a viral upper respiratory infection likely secondary to COVID-19. Reevaluation #2: 07/03/21 19:19 There is difficulty with IV on patient. Nurses tried multiple times. I attempted and ultrasound-guided IV in the left AC and appears to be successful. IV is flushing well. Patient takes saline and not any pain when is flushed with saline. I discussed with spa technician who will also examine the line determine if it is safe to proceed with contrast. I discussed the patient with Dr. Brice who will manage the patient. Please see his note for dispo . ED Medical Decision Making - Lab Data Result diagrams: 07/03/21 16:30 07/03/21 16:30 Lab Results 07/03/21 07/03/21 07/03/21 Range/Units 16:30 16:30 16:30 WBC 5.5 (4.5-11.0) K/mm3 RBC 4.51 (3.65-5.03) M/mm3 Hgb 12.2 (10.1-14.3) gm/dl Hct 39.5 (30.3-42.9) % MCV 88 (79-97) fl MCH 27 L (28-32) pg MCHC 31 (30-34) % RDW 14.7 (13.2-15.2) % Plt Count 183 (140-440) K/mm3 Lymph % (Auto) 24.1 (13.4-35.0) % Sawyer % (Auto) 14.9 H (0.0-7.3) % Eos % (Auto) 1.5 (0.0-4.3) % Baso % (Auto) 0.4 (0.0-1.8) % Lymph # (Auto) 1.3 (1.2-5.4) K/mm3 Sawyer # (Auto) 0.8 (0.0-0.8) K/mm3 Eos # (Auto) 0.1 (0.0-0.4) K/mm3 Baso # (Auto) 0.0 (0.0-0.1) K/mm3 Seg Neutrophils % 59.1 (40.0-70.0) % Seg Neutrophils # 3.3 (1.8-7.7) K/mm3 PT 13.4 (12.2-14.9) Sec. INR 0.92 (0.87-1.13) APTT 26.7 (24.2-36.6) Sec. Sodium 141 (137-145) mmol/L Potassium 3.5 L (3.6-5.0) mmol/L Chloride 103.7 (98-107) mmol/L Carbon Dioxide 22 (22-30) mmol/L Anion Gap 19 mmol/L BUN 11 (7-17) mg/dL Creatinine 0.8 (0.6-1.2) mg/dL Estimated GFR > 60 ml/min BUN/Creatinine Ratio 14 % Glucose 127 H (65-100) mg/dL Calcium 9.2 (8.4-10.2) mg/dL Total Bilirubin 0.20 (0.1-1.2) mg/dL AST 23 (5-40) units/L ALT 19 (7-56) units/L Alkaline Phosphatase 99 (35-129) units/L Total Protein 7.0 (6.3-8.2) g/dL Albumin 4.0 (3.9-5) g/dL Albumin/Globulin Ratio 1.3 % - Medical Decision Making Patient nontoxic no acute distress. Vital signs stable. Patient been out of her Xarelto for the past many months and has swelling to the left leg concerning for a possible DVT. I plan to get the patient back on her Xarelto however due to her respiratory symptoms today wanted to get a CTA of her chest to rule out PE. ED Disposition Clinical Impression: URI (upper respiratory infection) Disposition: LEFT AGAINST MEDICAL ADVICE Condition: Stable Referrals: GAYLE HILL MD [Primary Care Provider] - 3-5 Days <SHAQ DONALD - Last Filed: 07/03/21 20:53> ED Review of Systems ROS: Stated complaint: FEELING SICK Other details as noted in HPI ED Course Vital Signs 07/03/21 15:40 Temperature 99.4 F Pulse Rate 82 Respiratory 16 Rate Blood Pressure 156/83 [Left] O2 Sat by Pulse 97 Oximetry - Reevaluation(s) Reevaluation #2: 07/03/21 20:53 pt decied to leave ama, requested abx ED Medical Decision Making - Lab Data Result diagrams: 07/03/21 16:30 07/03/21 16:30 Critical care attestation.: If time is entered above; I have spent that time in minutes in the direct care of this critically ill patient, excluding procedure time. ED Disposition Is pt being admited?: No Does the pt Need Aspirin: No
[2021-07-03 17:10] LABS: Alanine Aminotransferase 19 units/L (7-56); BUN/Creatinine Ratio 14; Blood Urea Nitrogen 11 mg/dL (7-17); Calcium 9.2 mg/dL (8.4-10.2); Hemolysis Index 10
[2021-07-03 17:13] LABS: Basophils % (Auto) 0.4 % (0.0-1.8); Eosinophils # (Auto) 0.1 K/mm3 (0.0-0.4); Eosinophils % (Auto) 1.5 % (0.0-4.3); Hematocrit 39.5 % (30.3-42.9); Hemoglobin 12.2 gm/dl (10.1-14.3); Lymphocytes # (Auto) 1.3 K/mm3 (1.2-5.4); Lymphocytes % (Auto) 24.1 % (13.4-35.0); Mean Corpuscular HGB Conc 31 % (30-34); Mean Corpuscular Volume 88 fl (79-97); Monocytes # (Auto) 0.8 K/mm3 (0.0-0.8); Monocytes % (Auto) 14.9 % (0.0-7.3); Platelet Count 183 K/mm3 (140-440); Red Blood Count 4.51 M/mm3 (3.65-5.03); Red Cell Distribution Width 14.7 % (13.2-15.2)
[2021-07-03 17:24] LABS: INR 0.92 (0.87-1.13)
[2021-07-03 17:25] LABS: Partial Thromboplastin Time 26.7 Sec. (24.2-36.6)
--- NOTE | 2021-07-03 20:35 | XRay Report ---
XR chest 1V ap INDICATION / CLINICAL INFORMATION: sob COMPARISON: 04/25/2020 FINDINGS: SUPPORT DEVICES: None. HEART / MEDIASTINUM: No significant abnormality. LUNGS / PLEURA: Lungs are clear. Costophrenic sulci are sharp. No pneumothorax. ADDITIONAL FINDINGS: No significant additional findings. IMPRESSION: 1. No acute findings. Signer Name: Kory Burgess MD Signed: 07/03/2021 8:31 PM Workstation Name: [id number]
[2021-07-03 22:14] VITALS: BP 132/86
== END 2021-07-03 22:13 | disposition home or self-care (01) ==
LOC: ED 15:33
DX: J06.9 Acute upper respiratory infection, unspecified (principal); K21.9 Gastro-esophageal reflux disease without esophagitis; I10 Essential (primary) hypertension; F41.8 Other specified anxiety disorders; Z90.710 Acquired absence of both cervix and uterus; Z79.899 Other long term (current) drug therapy; Z86.718 Personal history of other venous thrombosis and embolism; Z79.01 Long term (current) use of anticoagulants
CPT/HCPCS: 36415; 71045; 80053; 85025; 85610; 85730; 99283